=== PATIENT | male | born 1990 | race Caucasian/White ===

== ENCOUNTER 2021-10-09 03:11 | Emergency (ER) | payer BC, SELFPAY ==
--- NOTE | ~2021-10-09 | CT_ITS ---
EXAMINATION: CTA chest PE protocol EXAM DATE: 10/09/2021 05:52 INDICATION: Hypoxia dx with COVID. TECHNIQUE: Spiral CTA of the chest (pulmonary arteries) was performed with 100 cc Omnipaque 350 intr avenous contrast injection. Images were acquired during the pulmonary arterial phase. Coronal maxi mum intensity projection 3D-reconstructions were created by the technologist on dedicated workstation . Axial, coronal and sagittal reformatted images were reviewed. The dose-length product (DLP) for t his examination was 314.55 mGy-cm. The exposure was tailored according to patient size (auto mA exp osure control), and iterative reconstruction (ASIR) was used as additional dose reduction technique. There is no prior study for comparison. FINDINGS: Pulmonary arteries are well opacified and without intraluminal filling defects. No thora cic aortic dissection. There is extensive dependent lower lobe groundglass airspace disease, smaller patches of additional groundglass airspace disease and other lung zones. This is consistent with acu te COVID pneumonia. Other etiologies not excludable. There are no pleural or pericardial effusions. Tracheobronchial tree is patent. There is no mediastinal, hilar or axillary lymphadenopathy. Th ere is no pneumothorax. Heart normal in size. No evidence of coronary arterial calcification. Up per abdomen is unremarkable. There is thoracic spondylosis without osteoblastic or osteolytic lesio ns identified. IMPRESSION: 1. Multifocal lower lobe predominant airspace disease likely acute COVID pneumonia. 2. No pulmonary emboli. Reviewed, dictated and finalized at location A. CE[employer]BER IMPRESSION: 1. Multifocal lower lobe predominant airspace disease likely acute COVID pneum onia. 2. No pulmonary emboli.
[2021-10-09 03:14] VITALS: BP 136/89; PULSE 112; RESP 20; TEMP 37.2; O2SAT 98
[2021-10-09] MEDS: SODIUM CHLORIDE 0.9% IV 1,000 ML 999 ML IV CONT (04:46)
[2021-10-09 04:57] LABS: Basophils Percent Auto 0.3 % (0.2-1.2); Eosinophils Percent Auto 0.3 % (0-4.4); Hematocrit 38.2 % (42.0-52.0); Hemoglobin 13.6 g/dL (14.0-18.0); Immature Granulocyte Absolute 0.01 K/mm3 (0.00-0.031); Immature Granulocyte Percent A 0.3 % (0-0.5); Immature Platelet Fraction Pct 5.1 % (0.9-11.2); Lymphocytes Absolute Auto 0.47 K/mm3 (0.9-3.2); Lymphocytes Percent Auto 15.6 % (18.3-44.2); Mean Corpuscular HGB Conc 35.6 g/dl (32-36); Mean Corpuscular Hemoglobin 30.4 pg (26-34); Mean Corpuscular Volume 85.3 fl (80-100); Mean Platelet Volume 10.4 fl (7.4-10.4); Monocytes Absolute Auto 0.1 K/mm3 (0.1-0.6); Monocytes Percent Auto 4.7 % (2.6-8.5); Neutrophils Absolute Auto 2.4 K/mm3 (1.3-6.7); Neutrophils Percent Auto 78.8 % (45.5-73.1); Platelet Count Result 101 k/mm3 (150-375); Red Blood Count 4.48 M/mm3 (4.6-6.20); Red Cell Distribution Width 11.6 % (11.5-14.5)
[2021-10-09 05:09] LABS: Alanine Aminotransferase 58 U/L (4-50); Albumin Level 3.9 g/dL (3.5-5.1); Alkaline Phosphatase 50 U/L (38-126); Anion Gap 8 mmol/L (8-16); Aspartate Amino Transferase 108 U/L (17-59); Bilirubin,Total 0.7 mg/dL (0.2-1.3); Blood Urea Nitrogen 9 mg/dL (9-20); Calcium 8.3 mg/dL (8.4-10.2); Carbon Dioxide 26 mmol/L (22-30); Chloride 101 mmol/L (98-107); Estimated Glomerular Filt Rate > 60; Glucose 96 mg/dL (65-110); Potassium 4.1 mmol/L (3.4-5.0); Sodium 135 mmol/L (137-145)
[2021-10-09 06:29] VITALS: O2SAT 99
--- NOTE | 2021-10-09 07:16 | ED.URI ---
HPI - URI/Sore Throat General Chief Complaint: Upper Respiratory Infection <Jon Baumann MD - Last Filed: 10/09/21 07:23> Stated Complaint: Covid +, low O2 sat <Jon Baumann MD - Last Filed: 10/09/21 07:23> Time Seen by Provider: 10/09/21 04:22 <Jon Baumann MD - Last Filed: 10/09/21 07:23> Source: patient <Jon Baumann MD - Last Filed: 10/09/21 07:23> History of Present Illness HPI Narrative: Patient presents with shortness of breath he was diagnosed with Covid by his primary care provider a few days ago. Tonight he was coughing felt more short of breath checked his oxygen level with his home device and said it was in the 80s. He was told by his primary care doctor if his oxygen levels get low he should go to the ER for evaluation so he presented for low oxygen levels. Reports continued cough, congestion and shortness of breath diagnosis. Also reports diffuse body aches <Jon Baumann MD - Last Filed: 10/09/21 07:23> Related Data Home Medications: Home Medications Medication Instructions Recorded Confirmed amoxicillin 10/09/21 <Jon Baumann MD - Last Filed: 10/09/21 07:23> Allergies/Adverse Reactions: Allergies Allergy/AdvReac Type Severity Reaction Status Date / Time ? STEROID Allergy Unknown Uncoded 10/09/21 03:17 <Jon Baumann MD - Last Filed: 10/09/21 07:23> Review of Systems Review of Systems: CONSTITUTIONAL: Denies fever, chills, or sweats. EYES: Denies visual changes, redness, or discharge. ENT: Denies rhinorrhea, congestion, sore throat, or otalgia. CARDIOVASCULAR: Denies chest pain, palpitations, or edema. RESPIRATORY: Reports cough and shortness of breath GASTROINTESTINAL: Denies abdominal pain, nausea, vomiting, or diarrhea. GENITOURINARY: Denies dysuria or hematuria. SKIN: Denies rash or itching. MUSCULOSKELETAL: Denies back pain, joint pain. NEUROLOGIC: Denies headache, numbness, dizziness, or weakness. PSYCHIATRIC: Denies anxiety or depression. <Jon Baumann MD - Last Filed: 10/09/21 07:23> All systems reviewed & are unremarkable except as noted in HPI and below <Jon Baumann MD - Last Filed: 10/09/21 07:23> PMFSH Past Medical History Medical History: Medical History Patient denies significant medical history <Jon Baumann MD - Last Filed: 10/09/21 07:23> Family History Family History: Family History Mother Family history of mental disorder Family history of chronic obstructive pulmonary disease <Jon Baumann MD - Last Filed: 10/09/21 07:23> Social History Social History: Social History Smoking status: Never smoker Second hand tobacco smoke exposure: Yes Alcohol intake: current <Jon Baumann MD - Last Filed: 10/09/21 07:23> Exam Narrative: GENERAL: Well-appearing, well-nourished, and in no acute distress. HEAD: Normocephalic, atraumatic. EYES: PERRLA and EOMI. ENT: Nares clear, no rhinorrhea or epistaxis. Mucous membranes moist. NECK: Supple. No masses. No JVD CHEST: Clear to auscultation. No respiratory distress. No wheezes rales or rhonchi HEART: Regular rate and rhythm. No murmur heard. Normal peripheral pulses. ABDOMEN: Soft, nontender, nondistended, normal active bowel sounds. EXTREMITIES: Normal range of motion. No edema. SKIN: Warm, dry, no rash. NEURO: No focal deficits. Alert and oriented x3. PSYCH: Normal mood and affect. <Jon Baumann MD - Last Filed: 10/09/21 07:23> Course Reevaluation(s) Reevaluation #1: Patient resting comfortably pending CTA read. Patient signed out to Dr. Muñoz pending CT results dissipate patient is appropriate continued outpatient supportive therapies. <Jon Baumann MD - Last Filed: 10/09/21 07:23> Date: 10/09/21 <Jon Wesley
[2021-10-09 08:22] VITALS: BP 129/89; PULSE 97; RESP 18; O2SAT 97
== END 2021-10-09 08:28 | disposition home or self-care (01) ==
PROVIDERS: Emergency Medicine; Emergency Provider Emergency Medicine
DX: U07.1 COVID-19 (principal); J12.82 Pneumonia due to coronavirus disease 2019
CPT/HCPCS: 36415; 71275; 80053; 85025; 85055; 96361; 96365; 99284; J0131; J7030; Q9967

== ENCOUNTER 2021-10-11 05:24 | Emergency (ER) | payer BC, SELFPAY ==
[2021-10-11] VITALS (8 sets, daily range): BP systolic 124–144; BP diastolic 83–94; PULSE 94–108; RESP 18–22; TEMP 36.9; O2SAT 93–98
--- NOTE | ~2021-10-11 | CT_ITS ---
EXAMINATION: CTA chest PE protocol EXAM DATE: 10/11/2021 07:11 INDICATION: COVID +, recurrent dyspnea. TECHNIQUE: Spiral CTA of the chest (pulmonary arteries) was performed with 100 cc Omnipaque 350 intr avenous contrast injection. Images were acquired during the pulmonary arterial phase. Coronal maxi mum intensity projection 3D-reconstructions were created by the technologist on dedicated workstation . Axial, coronal and sagittal reformatted images were reviewed. The dose-length product (DLP) for t his examination was 363.20 mGy-cm. The exposure was tailored according to patient size (auto mA exp osure control), and iterative reconstruction (ASIR) was used as additional dose reduction technique. Comparison is made to prior examination from 10/09/2021. FINDINGS: Pulmonary arteries are well opacified and without intraluminal filling defects. No thorac ic aortic dissection. There is extensive dependent lower lobe groundglass airspace disease, smaller patches of additional groundglass airspace disease and other lung zones with more confluence than on previous examination. This is consistent with acute COVID pneumonia. Other etiologies not excludable. There are no pleural or pericardial effusions. Tracheobronchial tree is patent. There is no med iastinal, hilar or axillary lymphadenopathy. There is no pneumothorax. Heart normal in size. No evidence of coronary arterial calcification. Upper abdomen is unremarkable. The bones are unremar kable. IMPRESSION: 1. Progressing multifocal lower lobe predominant airspace disease likely acute COVID pneumonia. 2. No pulmonary emboli. Reviewed, dictated and finalized at location A. [employer] AGENT
--- NOTE | ~2021-10-11 | XR_ITS ---
EXAMINATION: XR chest 1V portable EXAM DATE: 10/11/2021 06:06 INDICATION: COVID +, dyspnea . TECHNIQUE: Portable AP frontal chest x-ray was obtained. Correlation is made to CT pulmonary scan . FINDINGS: Moderate amount of bilateral COVID pneumonia, relative sparing of the upper lung zones. No pneumothorax or pleural effusion. Cardiomediastinal silhouette is normal. There are no osseous abnorm alities identified. IMPRESSION: Moderate amount of COVID pneumonia. Reviewed, dictated and finalized at location A. ER HELPER
--- NOTE | 2021-10-11 05:38 | ECG_ITS ---
Measurements Intervals [place] Rate: 101 P: 47 MT: 148 QRS: 5 QRSD: 105 T: 25 QT: 329 QTc: 427 Interpretive Statements SINUS TACHYCARDIA NONSPECIFIC T-WAVE ABNORMALITY- INFERIOR LEADS BASELINE ARTIFACT- II, III, AVL, AVF BORDERLINE ECG Electronically Signed On 10-11-2021 10:56:08 [employer] by Harjinder Stephens D.O.
--- NOTE | 2021-10-11 05:38 | ED.SOB ---
HPI - SOB/Dyspnea General Chief Complaint: Shortness of Breath/Dyspnea Stated Complaint: COVID+, SOB Time Seen by Provider: 10/11/21 05:38 Source: patient Mode of arrival: ambulatory Limitations: no limitations History of Present Illness HPI Narrative: Patient is a previously healthy 31-year-old male presenting for evaluation of increasing shortness of breath in the setting of a Covid positive diagnosis. Patient reportedly became symptomatic with fever, cough, rhinorrhea on Sunday, September 04, with positive Covid test results on , October 06. Patient was seen in this facility for evaluation on October 09 with a reassuring work-up including CTA which showed evidence of Covid pneumonia, but no PE. Patient had no severe electrolyte derangements and was not hypoxic, thus was discharged home. Patient returns with increasing cough, shortness of breath. No significant fever. Mild rhinorrhea. He denies chest pain. No calf swelling or leg pain. Patient states his oxygen monitor at home has been reading around 88% while the patient is at rest. Patient is unvaccinated. Unsure where his contact for Covid or exposure was. Related Data Home Medications Medication Instructions Recorded Confirmed amoxicillin 10/09/21 Allergies Allergy/AdvReac Type Severity Reaction Status Date / Time ? STEROID Allergy Unknown Uncoded 10/09/21 03:17 Review of Systems Review of Systems: CONSTITUTIONAL: Denies fever, reports chills EYES: Denies visual changes, redness, or discharge. ENT: Reports rhinorrhea and congestion CARDIOVASCULAR: Denies chest pain, palpitations, or edema. RESPIRATORY: Reports cough and shortness of breath GASTROINTESTINAL: Denies abdominal pain, nausea, vomiting, or diarrhea. GENITOURINARY: Denies dysuria or hematuria. SKIN: Denies rash or itching. MUSCULOSKELETAL: Denies back pain, reports joint pain and arthralgias, myalgias NEUROLOGIC: Reports headache PMFSH Past Medical History Medical History (Updated 10/11/21 @ 07:42 by Olena Knapp MD) COVID-19 Patient denies significant medical history Family History Family History Mother Family history of mental disorder Family history of chronic obstructive pulmonary disease Social History Social History Smoking status: Never smoker Second hand tobacco smoke exposure: Yes Alcohol intake: current Exam Narrative: GENERAL: Awake, alert, conversant HEAD: Normocephalic, atraumatic. EYES: PERRLA and EOMI. ENT: Nares clear, positive rhinorrhea. Mucous membranes moist. NECK: Supple. CHEST: Mild tachypnea no respiratory distress, coarse breath sounds bilaterally HEART: Tachycardic rate, sinus rhythm ABDOMEN:Non distended, non tender EXTREMITIES: Normal range of motion. No edema. SKIN: Warm, dry, no rash. NEURO:No focal deficits. Alert and oriented x3 Course Vital Signs Vital signs: Vital Signs Temperature 36.9 C 10/11/21 05:36 Pulse Rate 105 H 10/11/21 05:36 Respiratory Rate 22 H 10/11/21 05:36 Pulse Oximetry 98 10/11/21 05:36 Temperature 36.9 C 10/11/21 05:36 Pulse Rate 94 10/11/21 07:29 Respiratory Rate 18 10/11/21 07:29 Blood Pressure 144/94 H 10/11/21 07:29 Pulse Oximetry 98 10/11/21 07:29 MDM - SOB/Dyspnea MDM Narrative Medical decision making narrative: Patient presenting for evaluation of shortness of breath in the setting of known Covid pneumonia. At the time of assessment, patient's oxygen saturation are 98% on room air. He is in no significant respiratory distress. IV access obtained and labs are drawn. Patient has mild leukopenia, no significant thrombocytopenia. No anemia. Mild hyponatremia, no severe electrolyte derangement. No acute kidney injury. No significant elevation in troponin. EKG without acute ischemic changes. Chest x-ray with multifocal airspace disease, however CT
[2021-10-11 06:27] LABS: Basophils Percent Auto 0.2 % (0.2-1.2); Hematocrit 39.2 % (42.0-52.0); Hemoglobin 14.3 g/dL (14.0-18.0); Immature Granulocyte Absolute 0.04 K/mm3 (0.00-0.031); Immature Granulocyte Percent A 0.9 % (0-0.5); Immature Platelet Fraction Pct 3.8 % (0.9-11.2); Lymphocytes Absolute Auto 0.52 K/mm3 (0.9-3.2); Lymphocytes Percent Auto 12.1 % (18.3-44.2); Mean Corpuscular HGB Conc 36.5 g/dl (32-36); Mean Corpuscular Hemoglobin 30.3 pg (26-34); Mean Corpuscular Volume 83.1 fl (80-100); Mean Platelet Volume 9.7 fl (7.4-10.4); Monocytes Absolute Auto 0.3 K/mm3 (0.1-0.6); Monocytes Percent Auto 6.1 % (2.6-8.5); Neutrophils Absolute Auto 3.5 K/mm3 (1.3-6.7); Neutrophils Percent Auto 80.7 % (45.5-73.1); Platelet Count Result 142 k/mm3 (150-375); Red Blood Count 4.72 M/mm3 (4.6-6.20); Red Cell Distribution Width 11.5 % (11.5-14.5); White Blood Count 4.3 K/mm3 (4.5-10.0)
--- NOTE | 2021-10-11 06:39 | PC.NURSE ---
pt up to bedside to do 10 deep knee bends spo2 94% while lying in bed Spo2 increased to 98% with activity erp notified
[2021-10-11 06:46] LABS: INR 0.9; Prothrombin Time 12.2 Seconds (11.1-14.7)
[2021-10-11 06:47] LABS: Partial Thromboplastin Time 41.1 SECONDS (22.3-36.8)
[2021-10-11 06:48] LABS: Alanine Aminotransferase 63 U/L (4-50); Albumin Level 3.7 g/dL (3.5-5.1); Alkaline Phosphatase 51 U/L (38-126); Anion Gap 5 mmol/L (8-16); Aspartate Amino Transferase 133 U/L (17-59); Bilirubin,Total 0.7 mg/dL (0.2-1.3); Blood Urea Nitrogen 5 mg/dL (9-20); Calcium 8.6 mg/dL (8.4-10.2); Carbon Dioxide 30 mmol/L (22-30); Chloride 95 mmol/L (98-107); Estimated CRCL calculation 115 ml/min; Estimated Glomerular Filt Rate > 60; Glucose 101 mg/dL (65-110); Potassium 4.4 mmol/L (3.4-5.0); Sodium 130 mmol/L (137-145)
[2021-10-11 06:49] LABS: D Dimer 2.19 ug/mL (<0.48)
--- NOTE | 2021-10-11 07:30 | PC.NURSE ---
Pt states he was diagnosed with covid last week and he has experienced SOB and fevers at home
[2021-10-11 07:38] LABS: Troponin I 0.018 ng/mL (0.000-0.034)
== END 2021-10-11 08:27 | disposition home or self-care (01) ==
PROVIDERS: Emergency Provider Emergency Medicine
DX: U07.1 COVID-19 (principal); R06.00 Dyspnea, unspecified; R00.0 Tachycardia, unspecified
CPT/HCPCS: 36415; 71045; 71275; 80053; 84484; 85025; 85055; 85380; 85610; 85730; 93005; 99284; Q9967

== ENCOUNTER 2022-04-15 10:24 | Emergency (ER) | payer BC, SELFPAY ==
[2022-04-15 11:21] VITALS: BP 152/94; PULSE 111; RESP 16; TEMP 36.4; O2SAT 100
--- NOTE | 2022-04-15 11:28 | ED.URI ---
HPI - URI/Sore Throat General Chief Complaint: Upper Respiratory Infection Stated Complaint: headache, body fatigue Time Seen by Provider: 04/15/22 11:16 Source: patient Mode of arrival: ambulatory Limitations: no limitations History of Present Illness HPI Narrative: Patient presents today complaining of 2-day history of body aches, headache, scratchiness in his throat. He has been taking Tylenol with some relief and currently rates his headache 5/10. Upon arrival he did have 1 loose stool. States his daughter had similar symptoms this week. Related Data Home Medications Medication Instructions Recorded Confirmed No Home Medications 04/15/22 04/15/22 Allergies Allergy/AdvReac Type Severity Reaction Status Date / Time ? STEROID Allergy Hives Uncoded 04/15/22 10:45 Review of Systems Review of Systems: CONSTITUTIONAL: Deniesfever, chills, or sweats.+ Body aches EYES: Denies visual changes, redness, or discharge. ENT: Denies rhinorrhea, congestion, sore throat, or otalgia.+ Scratchy throat CARDIOVASCULAR: Denies chest pain, palpitations, or edema. RESPIRATORY: Denies cough or dyspnea. GASTROINTESTINAL: Denies abdominal pain, nausea, vomiting, or diarrhea. GENITOURINARY: Denies dysuria or hematuria. SKIN: Denies rash, itching, or wounds. MUSCULOSKELETAL: Denies back pain, joint pain, or myalgia. NEUROLOGIC: Denies numbness, tingling, or weakness.+ Headache PSYCH: Denies depression or anxiety. PMF Past Medical History Medical History COVID-19 Patient denies significant medical history Family History Family History Mother Family history of mental disorder Family history of chronic obstructive pulmonary disease Social History Social History Smoking status: Never smoker Second hand tobacco smoke exposure: Yes Alcohol intake: current Comments At time of signature, I have reviewed and agree with nursing past medical, surgical, social and family history unless otherwise noted. Please see nursing chart for further information. There is no relevant family history pertinent to the presenting complaint Exam Narrative: GENERAL: Mildly ill-appearing, well-nourished, and in no acute distress. HEAD: Normocephalic, atraumatic. EYES: EOMI. No redness or drainage. Conjunctivae normal. ENT: Mucous membranes pink and moist. Nares clear. No rhinorrhea. TMs normal bilaterally. Throat mildly erythematous without edema or exudate. Uvula midline. NECK: Normal AROM. Supple. No lymphadenopathy. CHEST: No respiratory distress. Clear to auscultation. HEART: Regular rate and rhythm. No murmur appreciated. Normal peripheral pulses. EXTREMITIES: Normal range of motion. No edema. SKIN: Warm, dry, no rash. Capillary refill normal. Normal skin turgor. NEURO: No focal deficits. Alert and oriented x3. Gait steady. PSYCH: Normal affect. No signs of depression or anxiety. Course Course Level of Care: Express Care Visit Vital Signs Vital signs: Vital Signs Temperature 97.6 F 04/15/22 11:21 Pulse Rate 111 H 04/15/22 11:21 Respiratory Rate 16 04/15/22 11:21 Blood Pressure 152/94 H 04/15/22 11:21 Pulse Oximetry 100 04/15/22 11:21 Temperature 97.6 F 04/15/22 11:21 Pulse Rate 111 H 04/15/22 11:21 Respiratory Rate 16 04/15/22 11:21 Blood Pressure 152/94 H 04/15/22 11:21 Pulse Oximetry 100 04/15/22 11:21 Reviewed. Pt has been instructed to follow up with his PCP regarding his elevated blood pressure today. MDM - URI/Sore Throat Differential Diagnosis Differential diagnosis: Likely upper respiratory infection, viral infection, influenza and other (COVID-19, strep throat) Lab Data Attestation: I reviewed the patient's lab results. Lab results narrative: Rapid COVID-19 test negative Labs: Lab Results
== END 2022-04-15 12:00 | disposition home or self-care (01) ==
PROVIDERS: Emergency Provider Nurse Practitioner
DX: B34.9 Viral infection, unspecified (principal); Z20.822 Contact with and (suspected) exposure to COVID-19; Z86.16 Personal history of COVID-19
CPT/HCPCS: 87081; 87426; 87804; 87880; 99213; C9803; G0463